=== PATIENT | female | born 1995 | race Caucasian/White ===

== ENCOUNTER 2017-10-28 22:12 | Outpatient (CLI) | payer OTHER ==
[~2017-10-28] VITALS: Ht 152.4 cm; Wt 61.8 kg
== END 2017-10-29 00:32 | disposition home or self-care (01) ==
LOC: LDOP 22:12
PROVIDERS: ATTEND Student in an Organized Health Care Education/Training Program
DX: O26.893 Other specified pregnancy related conditions, third trimester (principal); R10.9 Unspecified abdominal pain; Z3A.37 37 weeks gestation of pregnancy
CPT/HCPCS: 59025; 99201; G0463

== ENCOUNTER 2017-11-13 10:55 | Inpatient (IN) | payer OTHER ==
[~2017-11-13] VITALS: Ht 152.4 cm; Wt 52.3 kg
[2017-11-13] MEDS ORDERED: OXYTOCIN 30U/ 0.9% NaCL 500ML 500 ML IV ONE (11:08)
[2017-11-13 11:16] VITALS: BP 118/76
[2017-11-13] MEDS ORDERED: PLEASE ENTER HEIGHT AND WEIGHT MC SCH (11:30)
[2017-11-13] MEDS ORDERED: ONDANSETRON 2MG/ML, 2ML IVPush PRN ×2 (11:30→14:00)
[2017-11-13] MEDS ORDERED: SODIUM CITRATE/CITRIC ACID 30 ML UDC PO PRN (11:30)
[2017-11-13] MEDS ORDERED: CALCIUM CARBONATE 500 MG TAB.CHEW PO PRN (11:30)
[2017-11-13 11:40] LABS: BASOPHILS # (AUTO) 0.03 x10^3/uL (0-0.1); BASOPHILS % (AUTO) 0 % (0-1); EOSINOPHILS # (AUTO) 0.01 x10^3/uL (0-0.4); EOSINOPHILS % (AUTO) 0 % (1-7); LYMPHOCYTES # (AUTO) 1.09 x10^3/uL (1-3.4); LYMPHOCYTES % (AUTO) 14 % (22-44); MD NO; MEAN CORPUSCULAR HEMOGLOBIN 28.6 pg (27.0-34.8); MEAN CORPUSCULAR VOLUME 84.3 fL (80-100); MEAN PLATELET VOLUME 8.5 fL (7.4-10.4); MONOCYTES # (AUTO) 0.37 x10^3/uL (0.2-0.8); MONOCYTES % (AUTO) 5 % (2-9); NEUTROPHILS # (AUTO) 6.53 x10^3/uL (1.8-6.8); NEUTROPHILS % (AUTO) 81 % (42-75); PLATELET COUNT 211 x10^3/uL (130-400); RED BLOOD COUNT 4.61 x10^6/uL (3.82-5.3); RED CELL DISTRIBUTION WIDTH 14.3 % (9.6-15.2)
[2017-11-13] MEDS ORDERED: FENTANYL PF 100 MCG/2ML ONE ×2 (12:00→12:01)
[2017-11-13] MEDS ORDERED: BUPIVACAINE 0.25% ONE ×2 (12:00→12:01)
[2017-11-13] MEDS ORDERED: ONDANSETRON 2MG/ML, 2ML ONE (12:01)
[2017-11-13] MEDS ORDERED: FENTANYL/BUPIV./NS/PF 250 ML EPIDCONT ONE ×2 (12:01)
[2017-11-13] MEDS ORDERED: EPHEDRINE 50 MG/ML, 1ML ONE (12:01)
[2017-11-13] MEDS ORDERED: LIDOCAINE/PF 1.5%-EPI 1:200K, 30ML ONE (12:01)
[2017-11-13] MEDS ORDERED: NEWBORN KIT ONE (13:01)
[2017-11-13] MEDS: LACTATED RINGERS 1,000 ML IV SCH ×2 (13:18→20:15)
[2017-11-13] MEDS ORDERED: LIDOCAINE 1%, 10ML ONE (13:20)
[2017-11-13] MEDS ORDERED: MISOPROSTOL 200 MCG TABLET ONE (13:20)
[2017-11-13] MEDS ORDERED: OXYTOCIN 30U/ 0.9% NaCL 500ML 500 ML ONE ×2 (13:20→17:29)
[2017-11-13] MEDS ORDERED: FENTANYL/BUPIV./NS/PF 250 ML EPIDCONT SCH (13:59)
[2017-11-13] MEDS ORDERED: LACTATED RINGERS 1,000 ML IV SCH (13:59)
[2017-11-13] MEDS ORDERED: EPHEDRINE 50 MG/ML, 1ML IVPush PRN (14:00)
[2017-11-13] MEDS ORDERED: LACTATED RINGERS 1,000 ML IVBOLUS PRN (14:00)
[2017-11-13] MEDS: OXYTOCIN 30U/ 0.9% NaCL 500ML 500 ML IV SCH ×2 (14:46→18:28)
[2017-11-13] MEDS ORDERED: DOCUSATE 100 MG CAPSULE PO PRN (15:00)
[2017-11-13] MEDS ORDERED: ONDANSETRON 2MG/ML, 2ML IV PRN (15:00)
[2017-11-13] MEDS ORDERED: OXYcodone/APAP 5/325MG TABLET PO PRN (15:00)
[2017-11-13] MEDS ORDERED: GLYCERIN ADULT SUPP PR PRN (15:00)
[2017-11-13] MEDS ORDERED: ACETAMINOPHEN 325 MG TABLET PO PRN (15:00)
[2017-11-13] MEDS ORDERED: BISACODYL 10 MG SUPP PR PRN (15:00)
[2017-11-13] MEDS ORDERED: CARBOPROST TROMETHAMINE 250 MCG/ML, 1ML IM PRN (15:00)
[2017-11-13] MEDS ORDERED: IBUPROFEN 800 MG TABLET PO PRN (15:00)
[2017-11-13] MEDS ORDERED: METHYLERGONOVINE 0.2 MG/ML IM PRN (15:00)
[2017-11-13] MEDS ORDERED: MISOPROSTOL 200 MCG TABLET PR PRN (15:00)
[2017-11-13] MEDS ORDERED: METOCLOPRAMIDE 5 MG/ML, 2ML IV PRN (15:00)
[2017-11-13 18:22] VITALS: BP 97/61
[2017-11-13 20:05] VITALS: BP 105/67
[2017-11-13 20:31] LABS: BASOPHILS # (AUTO) 0.02 x10^3/uL (0-0.1); BASOPHILS % (AUTO) 0 % (0-1); EOSINOPHILS % (AUTO) 0 % (1-7); LYMPHOCYTES # (AUTO) 1.19 x10^3/uL (1-3.4); LYMPHOCYTES % (AUTO) 12 % (22-44); MD NO; MEAN CORPUSCULAR HEMOGLOBIN 28.6 pg (27.0-34.8); MEAN CORPUSCULAR HGB CONC 33.5 g/dL (32.4-35.8); MEAN CORPUSCULAR VOLUME 85.4 fL (80-100); MEAN PLATELET VOLUME 8.6 fL (7.4-10.4); MONOCYTES # (AUTO) 0.61 x10^3/uL (0.2-0.8); MONOCYTES % (AUTO) 6 % (2-9); NEUTROPHILS # (AUTO) 7.92 x10^3/uL (1.8-6.8); NEUTROPHILS % (AUTO) 81 % (42-75); PLATELET COUNT 165 x10^3/uL (130-400); RED BLOOD COUNT 3.99 x10^6/uL (3.82-5.3); RED CELL DISTRIBUTION WIDTH 14.5 % (9.6-15.2)
[2017-11-13 23:40] VITALS: BP 104/62
[2017-11-14 03:00] VITALS: BP 92/53
[2017-11-14] MEDS: LACTATED RINGERS 1,000 ML IV SCH ×2 (04:15→12:15)
[2017-11-14 07:43] VITALS: BP 96/55
[2017-11-14] MEDS: IBUPROFEN 600 MG TABLET PO PRN ×2 (08:07→14:55)
[2017-11-14] MEDS ORDERED: PRENATAL VIT/IRON/FA 1 EACH TABLET PO SCH (09:00)
[2017-11-14] MEDS: OXYTOCIN 30U/ 0.9% NaCL 500ML 500 ML IV SCH (10:46)
[2017-11-14] MEDS ORDERED: IBUP200T49 PO (11:55)
== END 2017-11-14 15:20 | disposition home or self-care (01) | DRG 775 ==
LOC: LDIP 10:55 → 2NW 17:35
PROVIDERS: ADMIT Student in an Organized Health Care Education/Training Program; ATTEND Student in an Organized Health Care Education/Training Program
PROC: 10907ZC Drainage of Amniotic Fluid, Therapeutic from Products of Conception, Via Natural or Artificial Opening (ICD-10-PCS; principal; 2017-11-13)
PROC: 10E0XZZ Delivery of Products of Conception, External Approach (ICD-10-PCS; 2017-11-13)
PROC: 3E0R3BZ Introduction of Anesthetic Agent into Spinal Canal, Percutaneous Approach (ICD-10-PCS; 2017-11-13)
PROC: 00HU33Z Insertion of Infusion Device into Spinal Canal, Percutaneous Approach (ICD-10-PCS; 2017-11-13)
DX: O80 Encounter for full-term uncomplicated delivery (principal); Z37.0 Single live birth; Z3A.39 39 weeks gestation of pregnancy; Z80.41 Family history of malignant neoplasm of ovary
CPT/HCPCS: 36415; 85025; 86850; 86900; J2405; J3010; J3490; J2590; J7120

== ENCOUNTER 2018-08-01 07:00 | Emergency (ER) | payer OTHER ==
[~2018-08-01] VITALS: Ht 152.4 cm; Wt 56.0 kg
[~2018-08-01 07:00] MED LIST: IBUP200T49 PO
[2018-08-01 07:53] LABS: MICROSCOPIC AUTO
[2018-08-01 07:57] LABS: CULTURE INDICATED? YES
[2018-08-01 08:19] LABS: BASOPHILS # (AUTO) 0.02 x10^3/uL (0-0.1); BASOPHILS % (AUTO) 0 % (0-1); EOSINOPHILS # (AUTO) 0.05 x10^3/uL (0-0.4); EOSINOPHILS % (AUTO) 1 % (1-7); LYMPHOCYTES # (AUTO) 1.35 x10^3/uL (1-3.4); LYMPHOCYTES % (AUTO) 16 % (22-44); MD NO; MEAN CORPUSCULAR HEMOGLOBIN 30.6 pg (27.0-34.8); MEAN CORPUSCULAR HGB CONC 33.7 g/dL (32.4-35.8); MEAN CORPUSCULAR VOLUME 90.8 fL (80-100); MEAN PLATELET VOLUME 7.7 fL (7.4-10.4); MONOCYTES # (AUTO) 0.33 x10^3/uL (0.2-0.8); MONOCYTES % (AUTO) 4 % (2-9); NEUTROPHILS # (AUTO) 6.57 x10^3/uL (1.8-6.8); NEUTROPHILS % (AUTO) 79 % (42-75); PLATELET COUNT 244 x10^3/uL (130-400); RED BLOOD COUNT 4.88 x10^6/uL (3.82-5.3); RED CELL DISTRIBUTION WIDTH 14.5 % (9.6-15.2)
[2018-08-01 08:32] LABS: ANION GAP 5 mmol/L (5-15); CALCIUM 8.2 mg/dL (8.5-10.1); CHLORIDE 112 mmol/L (98-107); CREATININE 0.72 mg/dL (0.55-1.02)
[2018-08-01 09:10] VITALS: BP 104/64
== END 2018-08-01 09:43 | disposition home or self-care (01) ==
LOC: ED 08:32
DX: O20.0 Threatened abortion (principal); Z3A.00 Weeks of gestation of pregnancy not specified
CPT/HCPCS: 36415; 76801; 80048; 81001; 82040; 84702; 85025; 86901; 87086; 99285

== ENCOUNTER 2019-06-01 11:56 | Outpatient (CLI) | payer OTHER ==
[~2019-06-01] VITALS: Ht 152.4 cm; Wt 65.0 kg
[2019-06-01 12:05] VITALS: BP 105/55
== END 2019-06-01 15:00 | disposition home or self-care (01) ==
LOC: LDOP 11:56
PROVIDERS: ATTEND Student in an Organized Health Care Education/Training Program
DX: O99.89 Other specified diseases and conditions complicating pregnancy, childbirth and the puerperium (principal); M79.89 Other specified soft tissue disorders; Z3A.36 36 weeks gestation of pregnancy
CPT/HCPCS: 36415; 59025; 80053; 81001; 82570; 84156; 84550; 85025; 93005; 99201; G0463

== ENCOUNTER 2019-06-09 00:51 | Inpatient (IN) | payer OTHER ==
[~2019-06-09] VITALS: Ht 152.4 cm; Wt 66.4 kg
[2019-06-10 08:00] VITALS: BP 100/62
== END 2019-06-10 13:40 | disposition home or self-care (01) | DRG 807 ==
LOC: LDOP 00:51 → LDIP 02:13 → 2NW 14:42
PROVIDERS: ADMIT Student in an Organized Health Care Education/Training Program; ATTEND Student in an Organized Health Care Education/Training Program
PROC: 10E0XZZ Delivery of Products of Conception, External Approach (ICD-10-PCS; principal; 2019-06-09)
PROC: 10907ZC Drainage of Amniotic Fluid, Therapeutic from Products of Conception, Via Natural or Artificial Opening (ICD-10-PCS; 2019-06-09)
PROC: 3E033VJ Introduction of Other Hormone into Peripheral Vein, Percutaneous Approach (ICD-10-PCS; 2019-06-09)
PROC: 3E0R3BZ Introduction of Anesthetic Agent into Spinal Canal, Percutaneous Approach (ICD-10-PCS; 2019-06-09)
PROC: 00HU33Z Insertion of Infusion Device into Spinal Canal, Percutaneous Approach (ICD-10-PCS; 2019-06-09)
DX: O80 Encounter for full-term uncomplicated delivery (principal); Z37.0 Single live birth; Z3A.37 37 weeks gestation of pregnancy
CPT/HCPCS: 36415; 85025; 86850; 86900; G0378; J2405; J2540; J2590; J3010; J7120

== ENCOUNTER 2019-09-07 15:01 | Outpatient (CLI) | payer OTHER ==
[~2019-09-07 15:01] MED LIST changes: +IBUP-1222 PO; +PREN1TAB60 PO
[2019-09-07] MEDS ORDERED: no medications (15:56)
[2019-09-07 16:03] LABS: BASOPHILS # (AUTO) 0.03 x10^3/uL (0-0.1); BASOPHILS % (AUTO) 1 % (0-1); EOSINOPHILS # (AUTO) 0.04 x10^3/uL (0-0.4); EOSINOPHILS % (AUTO) 1 % (1-7); LYMPHOCYTES # (AUTO) 2.42 x10^3/uL (1-3.4); LYMPHOCYTES % (AUTO) 34 % (22-44); MD NO; MEAN CORPUSCULAR HEMOGLOBIN 30.1 pg (27.0-34.8); MEAN CORPUSCULAR HGB CONC 33.9 g/dL (32.4-35.8); MEAN CORPUSCULAR VOLUME 88.8 fL (80-100); MEAN PLATELET VOLUME 7.4 fL (7.4-10.4); MONOCYTES # (AUTO) 0.37 x10^3/uL (0.2-0.8); MONOCYTES % (AUTO) 5 % (2-9); NEUTROPHILS % (AUTO) 59 % (42-75); PLATELET COUNT 317 x10^3/uL (130-400); RED BLOOD COUNT 4.51 x10^6/uL (3.82-5.3); RED CELL DISTRIBUTION WIDTH 14.4 % (9.6-15.2)
[2019-09-07 16:09] LABS: CULTURE INDICATED? YES; MICROSCOPIC INDICATED
[2019-09-07 16:09] LABS: ALBUMIN 3.9 g/dL (3.4-5.0); ANION GAP 5 mmol/L (5-15); CHLORIDE 112 mmol/L (98-107)
[2019-09-07 16:15] LABS: ALANINE AMINOTRANSFERASE 27 U/L (12-78); ALKALINE PHOSPHATASE 54 U/L (45-117); BILIRUBIN,TOTAL 0.2 mg/dL (0.2-1.0); CREATININE 0.71 mg/dL (0.55-1.02); TOTAL PROTEIN 7.1 g/dL (6.4-8.2)
== END 2019-09-07 23:59 | disposition home or self-care (01) ==
LOC: STAR 15:01
PROVIDERS: ATTEND Student in an Organized Health Care Education/Training Program
DX: Z01.818 Encounter for other preprocedural examination (principal); Z87.891 Personal history of nicotine dependence; Z82.49 Family history of ischemic heart disease and other diseases of the circulatory system
CPT/HCPCS: 36415; 80053; 81001; 84702; 85025; 87086

== ENCOUNTER 2019-09-12 09:23 | Day surgery (SDC) | payer OTHER ==
[~2019-09-12] VITALS: Ht 152.4 cm; Wt 61.4 kg
[~2019-09-12 09:23] MED LIST changes: +no medications
[2019-09-12] MEDS ORDERED: LACTATED RINGERS 1,000 ML IV SCH (09:50)
[2019-09-12 09:53] VITALS: BP 130/68
[2019-09-12] MEDS ORDERED: LIDOCAINE-MPF 1%, 2ML INFIL ONE (10:00)
[2019-09-12] MEDS ORDERED: BUPIVACAINE/PF 0.25% ONE (10:24)
[2019-09-12 10:26] LABS: MICROSCOPIC INDICATED
[2019-09-12 10:37] LABS: CULTURE INDICATED? NO
[2019-09-12] MEDS ORDERED: MIDAZOLAM 1 MG/ML, 2ML ONE (10:38)
[2019-09-12] MEDS ORDERED: FENTANYL PF 250 MCG/5ML ONE (10:39)
[2019-09-12] MEDS ORDERED: ROCURONIUM 10MG/ML,5ML ONE (10:42)
[2019-09-12] MEDS ORDERED: DEXAMETHASONE 4 MG/ML, 1ML ONE ×2 (10:42→11:34)
[2019-09-12] MEDS ORDERED: SUCCINYLCHOLINE 20 MG/ML, 10ML ONE (10:42)
[2019-09-12] MEDS ORDERED: PROPOFOL 10 MG/ML, 20ML ONE (10:42)
[2019-09-12] MEDS ORDERED: LIDOCAINE-MPF 2% ,5ML ONE (10:42)
[2019-09-12] MEDS ORDERED: CEFAZOLIN 1,000 MG ONE ×2 (10:42→11:34)
[2019-09-12] MEDS ORDERED: ACETAMINOPHEN 500 MG TABLET PO ONE (11:00)
[2019-09-12] MEDS ORDERED: SCOPOLAMINE PATCH, 1.5MG PATCH.TD72 TD ONE (11:00)
[2019-09-12] MEDS ORDERED: KETOROLAC 30 MG/1 ML ONE (11:50)
[2019-09-12] MEDS ORDERED: SUGAMMADEX 200 MG/2 ML IVPush ONE (12:08)
[2019-09-12] MEDS ORDERED: ONDANSETRON 2MG/ML, 2ML ONE (12:09)
[2019-09-12] MEDS ORDERED: LABETALOL 5MG/ML, 20ML IV PRN (12:30)
[2019-09-12] MEDS ORDERED: hydrALAzine 20 MG/ML, 1ML IV PRN (12:30)
[2019-09-12] MEDS ORDERED: PROMETHAZINE 25 MG/ML, 1ML IV PRN (12:30)
[2019-09-12] MEDS ORDERED: ALBUTEROL SULFATE 2.5 MG/3 ML NPPB PRN (12:30)
[2019-09-12] MEDS ORDERED: MEPERIDINE/PF 25MG/ML,1ML IVPush PRN (12:30)
[2019-09-12] MEDS ORDERED: OXYcodone 5 MG/5 ML ORAL.SOL UDC PO PRN (12:30)
[2019-09-12] MEDS ORDERED: MIDAZOLAM 1 MG/ML, 2ML IV PRN (12:30)
[2019-09-12] MEDS ORDERED: DIAZEPAM 5 MG/ML, 2ML IVPush PRN (12:30)
[2019-09-12] MEDS ORDERED: ONDANSETRON ODT 8 MG PO PRN (12:30)
[2019-09-12] MEDS ORDERED: FENTANYL PF 100 MCG/2ML IV PRN (12:30)
[2019-09-12] MEDS ORDERED: PROMETHAZINE 12.5 MG SUPP PR PRN (12:30)
[2019-09-12] MEDS ORDERED: EPHEDRINE 50 MG/ML, 1ML IVPush PRN (12:30)
[2019-09-12] MEDS ORDERED: HALOPERIDOL 5 MG/ML IV PRN (12:30)
[2019-09-12] MEDS ORDERED: HYDROmorphone 2 MG/ML, 1ML IVPush PRN (12:30)
[2019-09-12] MEDS ORDERED: ONDANSETRON 2MG/ML, 2ML IV PRN (12:30)
[2019-09-12] MEDS ORDERED: MEPERIDINE/PF 25MG/ML,1ML ONE (12:42)
== END 2019-09-12 14:58 | disposition home or self-care (01) ==
LOC: OUT 09:23
PROVIDERS: ATTEND Student in an Organized Health Care Education/Training Program
DX: Z30.2 Encounter for sterilization (principal)
CPT/HCPCS: 36415; 58670; 81001; 81025; 86850; 86900; 88302; J0330; J0690; J1100; J1885; J2175; J2250; J2405; J2704; J3010; J3490; J7120